=== PATIENT | female | born 1995 | race African-American/Black ===

== ENCOUNTER 2016-06-30 20:10 | Emergency (ER) ==
[2016-06-30 20:22] VITALS: BP 145/85
[2016-06-30] MEDS ORDERED: NORCO-7.5 PO ONE ×2 (21:15→21:20)
[2016-06-30] MEDS ORDERED: FLEXERIL PO ONE ×2 (21:15→21:21)
--- NOTE | 2016-06-30 21:18 | PROVIDER DOCUMENTATION ---
HPI-Musculoskeletal Pain/Inj - GENERAL Chief Complaint: Return/Recheck Stated Complaint: RT ARM PAIN/INJURY Time Seen by Provider: 06/30/16 20:42 Source: patient, family - HX OF PRESENT ILLNESS-MUSKULOSKELTAL Nature of Presenting Problem: 21 year old obese AAF presents with c/o right shoulder pain for 2 weeks. pt reports she fell several weeks ago, was evaluated at [facility], sent home with motrin and it is not providing relief. denies numbness/tingling, decreased ROM. Quality of Pain: reports: aching Severity in ED: mild Onset/Duration: 1 week ago Timing: still present, constant, getting worse Modifying Factors: improves with: nothing Any recent injury?: Yes Locality of Occurance: Home Similar Symptoms Previously?: Yes Review of Systems - Adult - REVIEW OF SYSTEMS - ADULT Constitutional: reports: no symptoms reported. denies: chills, fever Eyes: reports: no symptoms reported. denies: discharge, blurred vision, double vision Ears, Nose, Mouth & Throat: reports: no symptoms reported. denies: ear discharge, ear pain, nose pain, loose teeth, throat pain, throat swelling Cardiovascular: reports: no symptoms reported. denies: chest pain, palpitations Respiratory: reports: no symptoms reported. denies: chronic cough, cough, shortness of breath, wheezing Gastrointestinal: reports: no symptoms reported. denies: abdominal pain, diarrhea, difficulty swallowing, nausea, vomiting Genitourinary: reports: no symptoms reported. denies: dysuria, hematuria, urgency Musculoskeletal: reports: see HPI, joint pain. denies: bone pain, back pain, frequent leg cramps, joint swelling, muscle aches, muscle weakness, neck pain Integumentary: reports: no symptoms reported Neurological: reports: no symptoms reported. denies: ataxia, numbness, paresthesia Psychiatric: reports: no symptoms reported. denies: anxiety, anti-depressant use Endocrine: reports: no symptoms reported Hematologic/Lymphatic: reports: no symptoms reported Allergic/Immunologic: reports: no symptoms reported All Other Systems: Reviewed and Negative Past History - Adult - PAST MEDICAL HISTORY-ADULT Review of Records: reports: Old Records Reviewed, Nursing Assessment Review, Medications Reviewed, Social history reviewed & non-contributory. Major Childhood Illnesses: reports: denies history Cardiovascular: reports: denies history Respiratory: reports: denies history Gastrointestinal: reports: denies history Obstetrical/Gynecological: reports: denies history LMP: 07/01/16 Genitourinary: reports: denies history Musculoskeletal: reports: denies history Neurological: reports: denies history Endocrine/Immune: reports: denies history Other Conditions: reports: denies history - PRIOR SURGERIES/PROCEDURES Surgical/Procedure History: reports: none - PRIOR HOSPITALIZATIONS Prior Hospitalizations: reports: none - IMMUNIZATION STATUS Childhood Immunizations: See Nurse Assessment Flu Vaccine: See Nurse Assessment - FAMILY HISTORY Family History: reviewed, not pertinent - SOCIAL HISTORY Smoking: denies Substance Use: none/never Alcohol Use Frequency: never Physical Exam-Injury Related - Physical Exam-Injury Related Initial Vital Signs Reviewed: Yes General Appearance: appears well, alert, no apparent distress Eyes: PERRL/EOMI, pink conjunctivae Head, Ears, Nose, Mouth & Throat: normocephalic/atraumatic, normal ENT inspection, TMs normal, pharynx normal Neck: non-tender, full range of motion, supple, normal inspection Respiratory: chest non-tender, lungs clear, normal breath sounds, no pleuratic chest pain, no respiratory distress, no accessory muscle use Cardiovascular: normal peripheral pulses, regular rate, rhythm, no edema, no gallop, no JVD, no murmur Peripheral Pulses: radial (R): 3+, radial (L): 3+ Abdominal Exam: normal bowel sounds, non tender, soft, no organomegaly, no pulsatile mass Female Genitalia/Pelvic Exam: deferred Rectal Exam: deferred Hemoccult Exam: deferred Lymphatic: no adenopathy Back Exam: normal inspection, no CVA tenderness, no vertebral tenderness Extremity: normal range of motion, normal gait, normal inspection, no pedal edema, no calf tenderness, normal capillary refill, pelvis stable, swelling ( faint swelling to right anterior shoulder), tenderness (diffuse tenderness, no focal area). negative: non-tender, deformity, erythema, inflammation, joint effusion, pulse deficit, slow capillary refill Integumentary: normal color, warm/dry Neurologic: pe electrical engineer II-XII nml as tested, no motor/sensory deficits Psych/Mental Status: AL, normal mood/affect, normal thought content, normal thought process, oriented x 3 Progress - PLAN OF CARE/RESULTS Progress/Plan/Lab Results: Orders Category Date Time Status Cyclobenzaprine [Flexeril] Med 06/30/16 21:15 Discontinued 10 mg PO NOW ONE Cyclobenzaprine [Flexeril] Med 06/30/16 21:21 Discontinued 10 mg PO NOW ONE Hydrocodone/APAP 7.5 mg/325 mg [Milmay-7.5] Med 06/30/16 21:15 Discontinued 1 each PO NOW ONE Hydrocodone/APAP 7.5 mg/325 mg [Milmay-7.5] Med 06/30/16 21:20 Discontinued 1 each PO NOW ONE Vital Signs - 24 hr 06/30/16 20:20 Temperature 98.6 F Pulse Rate 65 Respiratory 20 Rate Blood Pressure 145/85 O2 Sat by Pulse 100 Oximetry Departure - Departure Time of Disposition Order: 21:16 DIAGNOSIS: Right shoulder injury Qualifiers: Encounter type: subsequent encounter Qualified Code(s): S49.91XD - Unspecified injury of right shoulder and upper arm, subsequent encounter Disposition: HOME 01 Certified Medical Emergency: Emergent Condition: Stable Additional Instructions: ED Follow Up Instructions: You have been treated by a care provider in the Emergency Department. These instructions are being provided to you so you can have an understanding of how to care for yourself upon discharge. Upon discharge from the Emergency Department, you are responsible for making arrangements for follow-up care by a physician of your choice. Take all prescribed medications as directed. Return to the Emergency Department immediately for any new or worsening symptoms. You may call the Physician Referral phone number at [phone] to obtain a list of Physicians who are taking new patients. Prescriptions: Cyclobenzaprine [Flexeril] 10 mg PO TID #20 tablet Hydrocodone/APAP 5 mg/325 mg [Milmay-5] 1 each PO Q6H PRN PRN #7 tablet PRN Reason: right shoulder pain Referrals: Kari Echols MD [Primary Care Provider] - Forms: Return to School/Parent Work Instructions: Shoulder Pain Attestation - Physician/ Mid-level Attestation Patient care was provided by Mid-level provider (QUALITY CONTROL MICROBIOLOGY SUPERVISOR/PA):: Yes Mid-level provider:: Sidney Barrett Mid-level documentation review:: The Mid-level provider documentation, treatment plan and medical decision making was reviewed by the physician who agrees with all treatment and medical decision making by the P.
== END 2016-06-30 21:30 | disposition home or self-care (01) ==
LOC: ED 20:10
DX: S49.91XA Unspecified injury of right shoulder and upper arm, initial encounter (principal); M25.511 Pain in right shoulder; M25.411 Effusion, right shoulder; E66.9 Obesity, unspecified; Z79.899 Other long term (current) drug therapy; W19.XXXA Unspecified fall, initial encounter
CPT/HCPCS: 99282